=== PATIENT | male | born 1995 | race Caucasian/White ===

== ENCOUNTER 2019-07-25 15:54 | Emergency (ER) | payer OTHER ==
[~2019-07-25] VITALS: Ht 177.8 cm; Wt 86.2 kg
[2019-07-25] MEDS ORDERED: ZITHROMAX500 MG PO (21:21)
[2019-07-25] MEDS ORDERED: ORPHENADRINE C100 MG PO (21:21)
[2019-07-25] MEDS ORDERED: KETO10TA2 PO (21:21)
== END 2019-07-25 21:34 | disposition home or self-care (01) ==
LOC: ER 15:54
DX: J06.9 Acute upper respiratory infection, unspecified (principal); B96.0 Mycoplasma pneumoniae [M. pneumoniae] as the cause of diseases classified elsewhere; M79.18 Myalgia, other site; B34.9 Viral infection, unspecified

== ENCOUNTER 2019-08-31 13:47 | Outpatient (CLI) | payer OTHER ==
[~2019-08-31 13:47] MED LIST: KETO10TA2 PO; ORPHENADRINE C100 MG PO; ZITHROMAX500 MG PO
== END 2019-08-31 13:57 | disposition home or self-care (01) ==
LOC: RAD 13:47
DX: S62.316A Displaced fracture of base of fifth metacarpal bone, right hand, initial encounter for closed fracture (principal)

== ENCOUNTER 2020-07-24 21:34 | Emergency (ER) | payer OTHER ==
[~2020-07-24] VITALS: Ht 177.8 cm; Wt 112.9 kg
== END 2020-07-24 23:11 | disposition home or self-care (01) ==
LOC: ER 21:34
DX: N34.2 Other urethritis (principal)

== ENCOUNTER 2023-02-01 21:14 | Emergency (ER) | payer OTHER ==
[~2023-02-01] VITALS: Ht 177.8 cm; Wt 127.0 kg
[2023-02-02] MEDS ORDERED: ONDANSETRON ODT4 MG PO (01:50)
[2023-02-02] MEDS ORDERED: PEPCID40 MG PO (01:50)
[2023-02-02] MEDS ORDERED: INTESTINEX680 M1 PO (01:50)
== END 2023-02-02 02:01 ==
LOC: ER 21:14
DX: K52.9 Noninfective gastroenteritis and colitis, unspecified (principal); A08.4 Viral intestinal infection, unspecified